=== PATIENT | male | born 1985 | race Caucasian/White ===

== ENCOUNTER 2020-01-21 14:45 | Emergency (ER) | payer BC ==
[~2020-01-21] VITALS: Ht 180 cm; Wt 85.0 kg
[2020-01-21 14:48] VITALS: BP 119/72; TEMP 97.5
[2020-01-21 15:33] LABS: COLLECTION METHOD CLEAN CATCH
[2020-01-21 15:39] LABS: MUCOUS Present /lpf; PH 5 (5-8); SQUAMOUS EPITHELIAL 0-2 /hpf; URINE APPEARANCE Clear; URINE BACTERIA Rare /hpf; URINE BILIRUBIN Negative (NEGATIVE); URINE BLOOD Negative (NEGATIVE); URINE COLOR Yellow; URINE GLUCOSE Negative (NEGATIVE); URINE KETONE Negative (NEGATIVE); URINE LEUKOCYTE ESTERASE Negative (NEGATIVE); URINE NITRATE Negative (NEGATIVE); URINE PROTEIN(semi-quant) Negative (NEGATIVE); URINE RBC 0-2 /hpf; URINE UROBILINOGEN Negative (NEGATIVE)
[2020-01-21 15:44] LABS: BASO # 0.1 (0.0-0.2); BASO % 0.8 % (0.0-2.0); EOS # 0.1 (0.0-0.7); EOS % 0.8 % (0-4.0); GRAN # 4.5 (1.4-6.5); GRAN % 68.8 % (42.2-75.2); HEMATOCRIT 47.9 % (42.0-52.0); HEMOGLOBIN 15.9 g/dl (13.5-18.0); LYMPH # 1.4 (1.2-3.4); LYMPH % 21.6 % (20.0-51.0); MEAN CELL VOLUME 89 fl (80.0-100.0); MEAN CORPUSCULAR HEMOGLOBIN 30 pg (27.0-31.0); MEAN CORPUSCULAR HGB CONC 33 g/dl (33.0-37.0); MEAN PLATELET VOLUME 8.8 fl (7.4-10.4); MONO # 0.5 (0.1-0.6); MONO % 7.5 % (1.7-9.3); PLATELET COUNT 259 K/mm3 (130-400); RED BLOOD COUNT 5.38 M/mm3 (4.20-5.60); REDCELL DISTRIBUTION WIDTH-CV 12.8 % (11.5-14.5)
[2020-01-21 15:58] LABS: ALANINE AMINOTRANSFERASE 25 U/L (4-49); ALBUMIN 4.9 gm/dL (3.5-5.0); ALKALINE PHOSPHATASE 61 U/L (50-136); ANION GAP 7 mmol/L (7-16); AST,SGOT 24 U/L (15-37); BLOOD UREA NITROGEN 15 mg/dL (9-20); C-REACTIVE PROTEIN < 0.5 mg/dL (0.0-0.9); CARBON DIOXIDE 27 mmol/L (22-30); CHLORIDE 102 mmol/L (98-107); CREATININE, serum 0.99 (0.66-1.25); GLUCOSE 128 mg/dL (74-106); LIPASE 91 U/L (23-300); POTASSIUM 4.3 mmol/L (3.4-5.0); SODIUM 137 mmol/L (137-145); TOTAL PROTEIN 8.2 gm/dL (6.4-8.2)
[2020-01-21 16:43] VITALS: PULSE 84
== END 2020-01-21 16:44 | disposition home or self-care (01) ==
LOC: COL.ER 14:45
PROVIDERS: Physician Assistant
DX: R10.31 Right lower quadrant pain (principal)

== ENCOUNTER 2020-04-05 13:29 | Emergency (ER) | payer BC ==
[2020-04-05 13:51] VITALS: BP 135/78; TEMP 99.4
[2020-04-05 14:58] VITALS: PULSE 81
== END 2020-04-05 14:59 | disposition home or self-care (01) ==
LOC: COL.ER 13:29
DX: T36.8X5A Adverse effect of other systemic antibiotics, initial encounter (principal); F41.0 Panic disorder [episodic paroxysmal anxiety]; N41.9 Inflammatory disease of prostate, unspecified

== ENCOUNTER 2020-07-10 06:02 | Emergency (ER) | payer BC ==
[~2020-07-10] VITALS: Ht 180 cm; Wt 72.7 kg
[2020-07-10 06:09] VITALS: BP 131/58; TEMP 97.3
[2020-07-10] MEDS ORDERED: ADVIL LIQUI-GE200 MG PO (06:25)
[2020-07-10 06:37] LABS: COLLECTION METHOD CLEAN CATCH
[2020-07-10 06:54] LABS: MUCOUS Present /lpf; PH 5 (5-8); SQUAMOUS EPITHELIAL None Seen /hpf; URINE APPEARANCE Clear; URINE BACTERIA None Seen /hpf; URINE BILIRUBIN Negative (NEGATIVE); URINE BLOOD Negative (NEGATIVE); URINE COLOR Yellow; URINE GLUCOSE Negative (NEGATIVE); URINE KETONE Negative (NEGATIVE); URINE LEUKOCYTE ESTERASE Negative (NEGATIVE); URINE NITRATE Negative (NEGATIVE); URINE PROTEIN(semi-quant) 1+ (NEGATIVE); URINE RBC None Seen /hpf; URINE UROBILINOGEN Negative (NEGATIVE)
[2020-07-10] MEDS ORDERED: CIPRO 500MG TA500 MG PO (09:12)
[2020-07-10 09:32] VITALS: PULSE 82
== END 2020-07-10 09:32 | disposition home or self-care (01) ==
LOC: COL.ER 06:02
PROVIDERS: Emergency Medicine
DX: N50.811 Right testicular pain (principal); Z88.2 Allergy status to sulfonamides